=== PATIENT | female | born 1950 | race Caucasian/White ===

== ENCOUNTER 2017-08-03 20:35 | Emergency (ER) | payer OTHER ==
[~2017-08-03] VITALS: Ht 157.5 cm; Wt 83.0 kg
[2017-08-03 21:15] LABS: Basophils # (auto) 0.1 uL; Basophils % (auto) 0.9 % (0.0-2.0); Eosinophils # (auto) 0.1 uL; Eosinophils % (auto) 1.1 % (0.0-7.0); Hematocrit 44.4 % (36.0-46.0); Hemoglobin 15.3 g/dL (12.2-16.2); Lymphocytes % (auto) 27.7 % (10.0-50.0); Mean Corpuscular Hemoglobin 31.1 pg (28.0-32.0); Mean Corpuscular Hgb Conc. 34.5 g/dL (32.0-36.0); Mean Corpuscular Volume 90.2 fL (80.0-100.0); Monocytes # (auto) 0.5 uL; Monocytes % (auto) 7.2 % (0.0-12.0); Neutrophils # (auto) 4.5 uL; Neutrophils % (auto) 63.1 % (37.0-80.0); Nucleated Red Blood Cells % 0.1 %; Platelet Count (auto) 221 10^3/uL (140-450); Red Blood Cells 4.92 10^6/uL (4.0-5.20); Red Cell Distribution Width 13.4 % (11.8-14.3); White Blood Cell 7.2 10^3/uL (4.4-10.8)
[2017-08-03 21:32] LABS: Alanine Aminotransferase 54 U/L (13-56); Albumin 4.1 g/dL (3.4-5.0); Alkaline Phosphatase 115 U/L (45-117); Anion Gap 11 (5-15); Aspartate Aminotransferase 24 U/L (15-37); BUN/Creatinine Ratio 20.9; Bilirubin, Total 0.4 mg/dL (0.2-1.0); Blood Urea Nitrogen 18 mg/dL (7-18); Calcium 8.9 mg/dL (8.5-10.1); Carbon Dioxide 23 mmol/L (21-32); Chloride 101 mmol/L (98-107); GFR African American 84 mL/min; GFR Non-African American 70 mL/min; Glucose 274 mg/dL (74-106); Magnesium 2.3 mg/dL (1.6-2.6); Potassium 3.7 mmol/L (3.5-5.1); Sodium 135 mmol/L (136-145); Total Protein 7.7 g/dL (6.4-8.2)
[2017-08-03] MEDS ORDERED: NITROGLYCERIN 0.4 MG SL TAB SL ONE (22:00)
[2017-08-03] MEDS ORDERED: LORazepam 0.5 MG TAB PO ONE (22:30)
[2017-08-03] MEDS ORDERED: MORPHINE SULFATE 10 MG/ML INJ 1ML SDV IV ONE (22:30)
[2017-08-03] MEDS ORDERED: ONDANSETRON HCL 4 MG/2 ML VIAL IV ONE (22:30)
[2017-08-04 00:06] VITALS: BP 138/84
[2017-08-04] MEDS ORDERED: MORPHINE SULFATE INJECTION 1 ML ONE (00:39)
[2017-08-04] MEDS ORDERED: MORPHINE SULFATE 10 MG/ML INJ 1ML SDV IV ONE (00:45)
[2017-08-04] MEDS ORDERED: NITROGLYCERIN 0.4 MG SL TAB SL ONE (00:45)
== END 2017-08-04 00:37 | disposition short-term general hospital (02) ==
LOC: EDBD 20:35 → ER 20:41
DX: I24.9 Acute ischemic heart disease, unspecified (principal); E11.9 Type 2 diabetes mellitus without complications; Z88.6 Allergy status to analgesic agent; Z88.0 Allergy status to penicillin
CPT/HCPCS: 36415; 71010; 80053; 82962; 83735; 84484; 85025; 85379; 94761; 96372; 96374; 96375; 96376; 99285; J2270; J2405

== ENCOUNTER 2019-08-25 02:14 | Inpatient (IN) | payer MEDICAID, OTHER ==
[~2019-08-25] VITALS: Ht 157.5 cm; Wt 86.3 kg
[2019-08-25] VITALS (31 sets, daily range): BP systolic 78–132; BP diastolic 33–71
[~2019-08-25 02:14] MED LIST: ACE3T PO; ATOR10TA52 PO; INSLANTI SC; INSREG3 SC; OXYB15TA12 PO; QUET25TA37 PO; ROPI0.5T16 PO
[2019-08-25] MEDS ORDERED: SUCCINYLCHOLINE CHLORIDE 20 MG/ML 10ML VIAL IV ONE ×2 (02:27→03:00)
[2019-08-25] MEDS ORDERED: ETOMIDATE (2MG/ML) 20ML VIAL IV ONE ×2 (02:27→03:00)
[2019-08-25] MEDS ORDERED: MIDAZOLAM DRIP 50 mg/50mL 50 ML IV ONE ×2 (02:34→10:19)
[2019-08-25] MEDS: MIDAZOLAM DRIP 50 mg/50mL 50 ML IV SCH ×2 (02:39→23:40)
[2019-08-25] MEDS: NOREPINEPHRINE 8 MG/250ML KIT 250 ML IV SCH (02:40)
[2019-08-25] MEDS ORDERED: NOREPINEPHRINE 8 MG/250ML KIT 250 ML IV ONE (02:41)
[2019-08-25] MEDS ORDERED: fentaNYL Drip 2500mCg/250mlNS 250 ML IV ONE (02:48)
[2019-08-25] MEDS ORDERED: fentaNYL Drip 2500mCg/250mlNS 250 ML IV SCH ×2 (02:59→09:05)
[2019-08-25] MEDS ORDERED: VANCOMYCIN PER PHARMACY 0 MG IV SCH ×2 (03:00→05:45)
[2019-08-25] MEDS ORDERED: NITROGLYCERIN 0.4 MG SL TAB SL PRN ×2 (03:00→06:15)
[2019-08-25] MEDS ORDERED: cefTRIAXone 1GM/50ML D5W 50 ML IV ONE (03:00)
[2019-08-25 03:03] LABS: Basophils # (auto) 0.1 uL; Basophils % (auto) 0.5 % (0.0-2.0); Eosinophils # (auto) 0.1 uL; Eosinophils % (auto) 0.4 % (0.0-7.0); Hemoglobin 14.3 g/dL (12.2-16.2); Lymphocytes # (auto) 1.9 uL; Lymphocytes % (auto) 12.6 % (10.0-50.0); Mean Corpuscular Hemoglobin 31.6 pg (28.0-32.0); Mean Corpuscular Volume 92.9 fL (80.0-100.0); Monocytes % (auto) 6.9 % (0.0-12.0); Neutrophils # (auto) 11.8 uL; Neutrophils % (auto) 79.6 % (37.0-80.0); Platelet Count (auto) 211 10^3/uL (140-450); Red Blood Cells 4.52 10^6/uL (4.0-5.20); Red Cell Distribution Width 12.9 % (11.8-14.3); White Blood Cell 14.8 10^3/uL (4.4-10.8)
[2019-08-25] MEDS ORDERED: SODIUM CHLORIDE 0.9% 1,000 ML IV ONE (03:15)
[2019-08-25 03:21] LABS: Alanine Aminotransferase 27 U/L (13-56); Albumin 3.4 g/dL (3.4-5.0); Anion Gap 13 (5-15); Aspartate Aminotransferase 31 U/L (15-37); BUN/Creatinine Ratio 19.5; Blood Urea Nitrogen 25 mg/dL (7-18); Calcium 8.5 mg/dL (8.5-10.1); Carbon Dioxide 20 mmol/L (21-32); Chloride 101 mmol/L (98-107); GFR African American 53 mL/min; GFR Non-African American 44 mL/min; Glucose 226 mg/dL (74-106); Potassium 4.2 mmol/L (3.5-5.1); Sodium 134 mmol/L (136-145)
[2019-08-25 03:24] LABS: INR 1.13 (0.9-1.15); Partial Thromboplastin Time 23.9 sec (23.64-32.05)
[2019-08-25 03:26] LABS: Alkaline Phosphatase 123 U/L (45-117); Bilirubin, Total 0.2 mg/dL (0.2-1.0); Total Protein 6.8 g/dL (6.4-8.2)
[2019-08-25] MEDS ORDERED: VANCOMYCIN 1GM/250ML 250 ML IV SCH (03:35)
[2019-08-25 04:20] LABS: Urine Bacteria FEW /hpf (None Seen); Urine Blood Negative /uL (Negative); Urine Hyaline Cast MANY /lpf (0 - 2); Urine Mucus FEW (None Seen); Urine WBC 2 /hpf (0 - 5)
[2019-08-25 04:23] LABS: Lactic Acid w/Reflex 3.6 mmol/L (0.4-2.0)
[2019-08-25] MEDS ORDERED: DEXTROSE (50%) 50ML SYRG IV PRN (05:45)
[2019-08-25] MEDS ORDERED: ONDANSETRON HCL 4 MG/2 ML VIAL IV PRN (05:45)
[2019-08-25] MEDS ORDERED: SODIUM CHLORIDE 0.9% 1,000 ML IV SCH (05:45)
[2019-08-25] MEDS: ACCU-CHEK COMFORT CURVE STRIP VI SCH ×4 (05:59→23:48)
[2019-08-25] MEDS: IPRATROPIUM BROM 0.5 MG/2.5ML INH SOL NEB SCH ×3 (06:00→19:19)
[2019-08-25] MEDS: ALBUTEROL SULF 2.5 MG/0.5ML(0.5%) NEB SOLN NEB SCH ×3 (06:00→19:19)
[2019-08-25] MEDS: InsuLIN REG 1unit/0.01ml Soln (100units/ml) SC SCH ×4 (06:02→23:49)
[2019-08-25] MEDS ORDERED: MORPHINE SULF INJ 2 MG/ML SYRINGE 1ML IV PRN (06:15)
[2019-08-25] MEDS ORDERED: PHENYLEPHRINE INJ 20 MG in D5W 5% 250 ML IV SCH (09:15)
--- NOTE | 2019-08-25 09:30 | NUR ---
WOUND CARE NOTE: ADDED PATIENT TO SKIN INTEGRITY MONITORING D/T LOW LAY SCORE 10, INTUBATION STATUS. PATIENT ADMITTED TO [facility] WITH DIAGNOSIS OF SEPTIC SHOCK. SHE IS ICU STATUS, INTUBATED IN THE ER, BED 15. PATIENT RESTING ON GURNEY. HOSPITAL BED HAS BEEN ORDERED TO BE BROUGHT TO THE ER. PATIENT TO BE PLACED, PENDING DELIVERY BY BREAKFAST COOK. PATIENT HAS NO SKIN INTEGRITY ISSUES AT THIS TIME. SHE WOULD BENEFIT FROM: SKIN/WOUND CARE PLAN, BID/PRN APPLICATION WITH MOISTURE BARRIER CREAM, OPTIFOAM GENTLE SACRAL DRESSING, FREQUENT TURN SCHEDULE Q 2 HOURS, PRN CONDITION PERMITS, WITH PRESSURE REDISTRIBUTION USING PILLOWS/WEDGES, DIETARY CONSULT, CONTINUED MONITORING BY WOUND CARE TEAM.
[2019-08-25] MEDS: PANTOPRAZOLE 40 MG/10 ML VIAL INJ IV SCH (10:00)
[2019-08-25] MEDS ORDERED: LEVOFLOXACIN 250MG 50 ML IV SCH (10:00)
[2019-08-25] MEDS: SODIUM CHLORIDE 0.9% 1,000 ML IV SCH ×2 (15:35→22:08)
--- NOTE | 2019-08-25 18:15 | NUR ---
PT TEACHING PT UNABLE TO BENEFIT FROM PT TEACHING AT THIS TIME DUE TO CONDITION. Addendum: 08/25/19 at 2008 by Kisha Dsouza RN Amended: Links added.
--- NOTE | 2019-08-25 18:15 | NUR ---
Pt being admitted to ICU ONEL SWENSON admitted to ICU via gurney on surface supervisor, intubated and being manually ventilated. Patient transfered to bed, connected to ICU monitoring and ventilator, and weighed by bedscale, 86.8 kg/191.4 lbs.. Patient oriented to Kisha Dsouza, primary RN, unit, room, bed, and unit policies regarding patient care and visiting hours. All questions and concerns addressed, patient verbalized understanding. NOTE:PT SEDATED ON VERSED AT 15 MG/HR . SOME SPOMTA PT ON THE VENTILATOR WITH SETTINGS: 7.5 FR ETT/22 AT THE LIP, TV 500, AC 14, 40% FIO2 AND PEEP OF 5.LUNGS CLEAR AND DIMINISHED THROUGHOUT. O2 SAT OF 93% WITH RR 27. TELE ST 136. TEMP OF 101.1(O). ICE PACKS IN PLACE. ABD SOFT WITH + BOWEL SOUNDS. NGT TO LEFT NARES AND CLAMPED. WAITING FOR IRRIGATION TRAY TO BE DELIVERED SO I CAN VERIFY NGT PLACEMENT . HYPOACTIVE BOWEL SOUNDS NOTED. NOBLES CATHETER DRAINING CLEAR YELLOW URINE. TURNED FOR COMFORT RO HER LEFT SIDE. SOME MUCUS NOTED FROM RECTUM. PERICARE GIVEN. PT NOTED MONTY BLANCHABLE PINK AROUND RECTUM AND EXCORIATED IN FOLDS BETWEEN LABIA AND THIGHS BILATERALLY. CLEANED. APPLIED SCDS TO BLE. FEET VERY DRY, FLAKY AND CRACKED. THE SOLES OF HER FEET EXTREMELY DIRTY AND CALLOUSED. CLEANED FEET, AND APPLIED LOTION AND BOOTIES. FEET OFFLOADED ON PILLOWS. RAILS UPX4 AND BED IN LOW POSTITION FOR PT SAFETY.
--- NOTE | 2019-08-25 19:50 | NUR ---
REPORT REPORT GIVEN TO NIGHT NERI HAGER. Addendum: 08/25/19 at 2009 by Kisha Dsouza RN UNABLE TO COMPLETE ADMISSION INTERVENTIONS PT INTUBATED AND SEDATED AND NO FAMILY PRESENT.
--- NOTE | 2019-08-25 20:50 | NUR ---
FAMILY NEXT OF KIN INFORMATION ON PREVIOUS ADMISSION WAS WARD (SON) [phone]. PHONED THIS NUMBER. NOBODY ANSWERED. LEFT MESSAGE TO CALL BACK TO THE UNIT.
[2019-08-26] VITALS (103 sets, daily range): BP systolic 74–144; BP diastolic 38–98
[2019-08-26] MEDS: ALBUTEROL SULF 2.5 MG/0.5ML(0.5%) NEB SOLN NEB SCH ×4 (00:56→18:49)
[2019-08-26] MEDS: IPRATROPIUM BROM 0.5 MG/2.5ML INH SOL NEB SCH ×4 (00:56→18:49)
[2019-08-26] MEDS: NOREPINEPHRINE 8 MG/250ML KIT 250 ML IV SCH (01:22)
[2019-08-26] MEDS: VANCOMYCIN 750mg/250ml 250 ML IV SCH (03:54)
[2019-08-26] MEDS: MIDAZOLAM DRIP 50 mg/50mL 50 ML IV SCH ×5 (03:55→21:07)
[2019-08-26 05:55] LABS: Basophils # (auto) 0.2 uL; Basophils % (auto) 1.4 % (0.0-2.0); Eosinophils # (auto) 0.1 uL; Eosinophils % (auto) 0.7 % (0.0-7.0); Hematocrit 36.8 % (36.0-46.0); Hemoglobin 12.9 g/dL (12.2-16.2); Lymphocytes # (auto) 0.8 uL; Lymphocytes % (auto) 7.2 % (10.0-50.0); Mean Corpuscular Hemoglobin 31.9 pg (28.0-32.0); Mean Corpuscular Hgb Conc. 35.1 g/dL (32.0-36.0); Mean Corpuscular Volume 90.7 fL (80.0-100.0); Monocytes # (auto) 0.8 uL; Monocytes % (auto) 6.6 % (0.0-12.0); Neutrophils # (auto) 9.7 uL; Neutrophils % (auto) 84.1 % (37.0-80.0); Platelet Count (auto) 176 10^3/uL (140-450); Red Blood Cells 4.06 10^6/uL (4.0-5.20); Red Cell Distribution Width 13.1 % (11.8-14.3); White Blood Cell 11.5 10^3/uL (4.4-10.8)
[2019-08-26 06:11] LABS: Albumin 2.8 g/dL (3.4-5.0); Calcium 8.7 mg/dL (8.5-10.1); Potassium 4.1 mmol/L (3.5-5.1)
[2019-08-26 06:15] LABS: BUN/Creatinine Ratio 12.6; Bilirubin, Total 0.6 mg/dL (0.2-1.0); Total Protein 6.3 g/dL (6.4-8.2)
[2019-08-26] MEDS: ACCU-CHEK COMFORT CURVE STRIP VI SCH ×4 (06:17→23:33)
[2019-08-26] MEDS: InsuLIN REG 1unit/0.01ml Soln (100units/ml) SC SCH ×4 (06:17→23:49)
[2019-08-26 06:33] LABS: Magnesium 1.9 mg/dL (1.6-2.6)
--- NOTE | 2019-08-26 06:55 | NUR ---
PATIENT IS RESTLESS PATIENT IS ON VERSED 15 MG/HR. PATIENT IS VERY RESTLESS, TRYING TO PULL OUT ETT. BOTH HANDS ARE WITH MITTENS. HR IS IN LOW 130'S AND RESP.RATE IS IN HIGH 20'S. NOTIFIED MD AND HE ORDERED TO START PROPOFOL DRIP LOW DOSE.
[2019-08-26] MEDS: PROPOFOL 100 ML IV SCH ×2 (07:02→23:35)
--- NOTE | 2019-08-26 07:30 | NUR ---
REPORT REPORT RECEIVED AND BEDSIDE CHECK DONE. PT INTUBATED AND SEDATED. CONTINUE TO MONITOR.
--- NOTE | 2019-08-26 08:10 | NUR ---
PT TEACHING PT UNABLE TO BENEFIT FROM PT TEACHING AT THIS TIME SHE IS SEDATED WHILE ON THE VENTILATOR. Addendum: 08/26/19 at 1540 by Kisha Dsouza RN Amended: Links added.
[2019-08-26] MEDS: SODIUM CHLORIDE 0.9% 1,000 ML IV SCH ×2 (08:29→21:09)
--- NOTE | 2019-08-26 09:00 | NUR ---
FAMILY SPOKE WITH PT'S DAUGHTER IN LAW, JENNIFER, BY PHONE. UPDATED HER ON THE PT'S CURRENT CONDITION. I WILL ASK THE [facility] TO CALL AND UPDATE HER WHEN THEY MAKE ROUNDS, IF JENNIFER IS NOT HERE AT THAT TIME.
--- NOTE | 2019-08-26 09:25 | NUR ---
SPOKE WITH DR AQUINO BY PHONE AND NOTIFIED OF MORNING ABG. ORDERS RECEIVED TO KEEP O2 SATS GREATER THAN 90% , INCREASE PEEP TO 7, INCREASE FIO2 TO 45% AND AN ABG TO BE DONE IN [address] DHIRAJ
--- NOTE | 2019-08-26 09:28 | NUR ---
STARTED PT ON LEVOPHED AT 5 MCG. BP 79/41. CONTINUE TO MONITOR BP.
--- NOTE | 2019-08-26 09:55 | NUR ---
[facility] [employer] RECEIVED A CALL FROM [facility] [employer]/OUTSIDE UTILIZATION REVIEW. I UPDATED HER ON THE PT'S CURRENT CONDITION. HER CONTACT NUMBER IS [phone].
[2019-08-26] MEDS ORDERED: LEVOFLOXACIN 250MG 50 ML IV SCH (10:00)
[2019-08-26] MEDS: PANTOPRAZOLE 40 MG/10 ML VIAL INJ IV SCH (10:32)
[2019-08-26] MEDS ORDERED: MAGNESIUM SULFATE 1GM/100ML 100 ML IV ONE (11:00)
[2019-08-26] MEDS: LEVOFLOXACIN 750MG 150 ML IV SCH (11:00)
[2019-08-26] MEDS ORDERED: ACETAMINOPHEN 650 mg PER 20 mL UD GT PRN (13:15)
--- NOTE | 2019-08-26 13:20 | NUR ---
CARDIOLOGY CONSULT PT SEEN AND EXAMINED BY DR FITCH. HE DOES NOT FEEL PT IS STABLE FOR TRANSFER.
--- NOTE | 2019-08-26 15:16 | NUR ---
LOCATED PT'S PERSONAL BELONGINGS IN THE ER. I BROUGHT THEM TO ICU AND LOGGED THEM ON THE PT VALUABLES INVENTORY.
--- NOTE | 2019-08-26 17:33 | NUR ---
FAMILY DAUGHTER IN LAW RODRIGUEZ HERE AND UPDATED ON THE PT'S CONDITION AND POC. SHE PROVIDED WITH ADMITTING INFO AND A COPY OF THE PT'S DURABLE POWER OF HISTOLOGY TECHNICIAN. Addendum: 08/26/19 at 1735 by Kisha Dsouza RN JENNIFER DECIDED TO LEAVE THE PT'S BELONGINGS HERE IN CASE SHE TRANSFERS TO [place].
[2019-08-26] MEDS ORDERED: MULTTAB99 PO (19:43)
[2019-08-26] MEDS ORDERED: TROS20TA3 PO (19:43)
--- NOTE | 2019-08-26 19:45 | NUR ---
OPEN NOTES Received patient sedated and intubated. Moves upper limbs when stimulated.Pupils sluggishly reactive to light. On Sinus tachycardia HR 110-120/min. On IV Levophed at 4mcg/min. Patient breaths 20-30/min - increased sedation. Mittens at both hands. Full assessment done -refer interventions. Repositioned,oral care done.
--- NOTE | 2019-08-26 20:00 | NUR ---
RESPIRATORY PATIENT BREATHING 25-30/MIN, NOTED LABORED BREATHS, SPO2 96% - SUCTIONED SMALL AMOUNT OF SECRETIONS FROM ETT INCREASED SEDATION
[2019-08-27] VITALS (107 sets, daily range): BP systolic 96–146; BP diastolic 52–84
[2019-08-27] MEDS: ALBUTEROL SULF 2.5 MG/0.5ML(0.5%) NEB SOLN NEB SCH ×4 (00:17→18:25)
[2019-08-27] MEDS: IPRATROPIUM BROM 0.5 MG/2.5ML INH SOL NEB SCH ×4 (00:17→18:25)
[2019-08-27] MEDS: MIDAZOLAM DRIP 50 mg/50mL 50 ML IV SCH ×5 (01:00→23:05)
[2019-08-27] MEDS: NOREPINEPHRINE 8 MG/250ML KIT 250 ML IV SCH (03:02)
--- NOTE | 2019-08-27 04:30 | NUR ---
Patient bathe/linen change Patient given complete bath. Skin integrity assessed for any changes. Linens changed. Patient repositioned for comfort.
[2019-08-27 05:00] LABS: Basophils # (auto) 0 uL; Basophils % (auto) 0.4 % (0.0-2.0); Eosinophils # (auto) 0.1 uL; Eosinophils % (auto) 1.6 % (0.0-7.0); Hematocrit 32.3 % (36.0-46.0); Hemoglobin 11.6 g/dL (12.2-16.2); Lymphocytes # (auto) 0.9 uL; Lymphocytes % (auto) 11.1 % (10.0-50.0); Mean Corpuscular Hemoglobin 32.3 pg (28.0-32.0); Mean Corpuscular Hgb Conc. 35.8 g/dL (32.0-36.0); Mean Corpuscular Volume 90.2 fL (80.0-100.0); Monocytes # (auto) 0.6 uL; Monocytes % (auto) 7.2 % (0.0-12.0); Neutrophils # (auto) 6.6 uL; Neutrophils % (auto) 79.7 % (37.0-80.0); Nucleated Red Blood Cells % 0.1 %; Platelet Count (auto) 167 10^3/uL (140-450); Red Blood Cells 3.58 10^6/uL (4.0-5.20); Red Cell Distribution Width 13.1 % (11.8-14.3); White Blood Cell 8.3 10^3/uL (4.4-10.8)
[2019-08-27] MEDS: VANCOMYCIN 750mg/250ml 250 ML IV SCH (05:15)
[2019-08-27 05:23] LABS: Calcium 8.3 mg/dL (8.5-10.1); Potassium 3.8 mmol/L (3.5-5.1)
[2019-08-27 05:26] LABS: BUN/Creatinine Ratio 12.2
--- NOTE | 2019-08-27 06:00 | NUR ---
NGT PLACEMENT FROM XRAY ACCORDING TO CHEST XRAY ENTERIC TUBE NEEDS TO BE ADVANCE BY 10CM NGT PLACEMENT CHECKED BY AUSCULTATION - IT IS IN THE PROPER SPOT BUT STILL DID ADVANCE BY 5CM
[2019-08-27] MEDS: ACCU-CHEK COMFORT CURVE STRIP VI SCH ×4 (06:20→23:52)
[2019-08-27] MEDS: InsuLIN REG 1unit/0.01ml Soln (100units/ml) SC SCH ×4 (06:20→23:52)
--- NOTE | 2019-08-27 07:00 | NUR ---
REPORT REPORT GIVEN TO ALLEY HAYDEN
[2019-08-27] MEDS: SODIUM CHLORIDE 0.9% 1,000 ML IV SCH ×2 (09:00→19:51)
--- NOTE | 2019-08-27 09:00 | NUR ---
Family updated on pt status Family of ONEL SWENSON updated on patient's status and condition. All questions and concerns addressed, verbalized understanding; family created a password for information release.
[2019-08-27] MEDS: LEVOFLOXACIN 750MG 150 ML IV SCH (10:00)
[2019-08-27] MEDS: PANTOPRAZOLE 40 MG/10 ML VIAL INJ IV SCH (10:00)
--- NOTE | 2019-08-27 11:30 | NUR ---
Provider/Hospitalist at bedside Dr. Salamanca made rounds and saw pt. and made some orders
--- NOTE | 2019-08-27 12:30 | NUR ---
Provider/Hospitalist at bedside Dr. Gonzalez made rounds and saw pt. and evaluated pt. unstable for transfer to [place] at this time.
--- NOTE | 2019-08-27 13:00 | NUR ---
Provider/Hospitalist at bedside Dr. Loya made rounds and saw pt. and made some orders, MD was updated on pt.'s status/condition.
--- NOTE | 2019-08-27 16:00 | NUR ---
RE-ASSESS VSS, afebrile, no pain/distress seen, will continue to monitor pt.
--- NOTE | 2019-08-27 19:25 | NUR ---
OPENING SHIFT RECEIVED REPORT FROM DAY SHIFT RN. ASSUMED CARE OF PATIENT. PATIENT IN BED SEDATED AND INTUBATED - SIZE 7.5, 24 AT THE LIP. CURRENTLY ON VENT - AC 14/ TV 500/ FI02 35%/ PEEP +7, 02 SAT - 97%. RIGHT INTRAJUGULAR TLC, LEFT AND RIGHT FOREARM IV - CLEAN/DRY/INTACT. NASOGASTRIC TUBE IN THE LEFT NARE - CLAMPED, NO RESIDUAL. NOBLES HUNG TO GRAVITY ON BED RAIL. REPOSITIONED FOR COMFORT. BED IN LOWEST POSITION, SIDE RAILS UP X2. WILL CONTINUE TO MONITOR.
[2019-08-28] VITALS (88 sets, daily range): BP systolic 89–152; BP diastolic 56–83
[2019-08-28] MEDS: IPRATROPIUM BROM 0.5 MG/2.5ML INH SOL NEB SCH ×4 (00:04→19:17)
[2019-08-28] MEDS: ALBUTEROL SULF 2.5 MG/0.5ML(0.5%) NEB SOLN NEB SCH ×4 (00:04→19:17)
--- NOTE | 2019-08-28 03:00 | NUR ---
MORNING CARE PERFORMED MORNING CARE WITH CHG WIPES. PARTIAL LINEN CHANGE AND GOWN CHANGED. SKIN REASSESSED AT THIS TIME. REPOSITIONED FOR COMFORT. BED IN LOWEST POSITION, SIDE RAILS UP X2. WILL CONTINUE TO MONITOR.
[2019-08-28] MEDS: MIDAZOLAM DRIP 50 mg/50mL 50 ML IV SCH ×2 (03:20→06:39)
[2019-08-28] MEDS: VANCOMYCIN 750mg/250ml 250 ML IV SCH (03:38)
[2019-08-28 04:03] LABS: Basophils # (auto) 0 uL; Basophils % (auto) 0.8 % (0.0-2.0); Eosinophils # (auto) 0.2 uL; Eosinophils % (auto) 2.5 % (0.0-7.0); Hematocrit 31.6 % (36.0-46.0); Hemoglobin 11.5 g/dL (12.2-16.2); Lymphocytes # (auto) 0.9 uL; Lymphocytes % (auto) 13.3 % (10.0-50.0); Mean Corpuscular Hemoglobin 32.5 pg (28.0-32.0); Mean Corpuscular Hgb Conc. 36.3 g/dL (32.0-36.0); Mean Corpuscular Volume 89.6 fL (80.0-100.0); Monocytes # (auto) 0.5 uL; Monocytes % (auto) 7.4 % (0.0-12.0); Platelet Count (auto) 171 10^3/uL (140-450); Red Blood Cells 3.53 10^6/uL (4.0-5.20); Red Cell Distribution Width 12.7 % (11.8-14.3); White Blood Cell 6.6 10^3/uL (4.4-10.8)
[2019-08-28 04:22] LABS: Potassium 3.7 mmol/L (3.5-5.1)
[2019-08-28 04:26] LABS: Calcium 8.5 mg/dL (8.5-10.1)
[2019-08-28] MEDS: InsuLIN REG 1unit/0.01ml Soln (100units/ml) SC SCH ×3 (06:29→18:43)
[2019-08-28] MEDS: ACCU-CHEK COMFORT CURVE STRIP VI SCH ×3 (06:29→18:43)
[2019-08-28] MEDS: SODIUM CHLORIDE 0.9% 1,000 ML IV SCH (06:40)
[2019-08-28] MEDS: PROPOFOL 100 ML IV SCH ×3 (06:53→18:41)
--- NOTE | 2019-08-28 07:12 | NUR ---
END OF SHIFT REPORT GIVEN TO DAY SHIFT RN. CARE ENDORSED.
--- NOTE | 2019-08-28 09:10 | NUR ---
FAMILY PHONE CALL Received phone call from patient's daughter in law Liv, updated her on patient condition and possibility of transfer to [facility] today. Informed her that we will not know which [facility] facility she would go to until [facility] case management notifies us of the bed arrangement. She states that she has not been able to speak to a doctor so far, will attempt to have physician call after rounds today. Liv states that she will call later in the day for an update if she does not hear from anyone before then.
[2019-08-28] MEDS: LEVOFLOXACIN 750MG 150 ML IV SCH (10:31)
[2019-08-28] MEDS: PANTOPRAZOLE 40 MG/10 ML VIAL INJ IV SCH (10:32)
--- NOTE | 2019-08-28 10:45 | NUR ---
AT BEDSIDE; Dr. Salamanca at bedside, updated on patient condition. States to clear patient for transfer with pulmonology as well as cardiology.
[2019-08-28] MEDS ORDERED: SODIUM CHLORIDE 0.9% 1,000 ML IV SCH (11:00)
--- NOTE | 2019-08-28 12:00 | NUR ---
08/28/19 1150 Contacted willow analyst Milagros at [facility] to request authorization for patient's continued stay. Per Milagros the assigned director of casework is Radha and she will have her give me a call. Per [place] director of casework Radha is still reviewing clinical information and further authorization can not be given until information is reviewed. I faxed labs, vitals, CXR, medication list to [facility] [phone].
--- NOTE | 2019-08-28 12:00 | NUR ---
AT BEDSIDE; Dr. Keating at bedside, case reviewed. Discussed orders for transfer to [place], states that patient is stable for transfer from pulmonary point of view.
--- NOTE | 2019-08-28 12:07 | NUR ---
08/28/19 0786 I received a call from [place] [employer] Specialist Radha. Provided her with a verbal report on the patient's clinical status as requested. I let her know that there is an order to transfer this patient to [place]. I requested authorization for yesterday-she said it was denied due to limited clinical information received. I asked her what information she did not receive that was requested-she stated MD progress notes and pulmonology progress notes from 08/27. Faxed requested items to her [phone]. I asked Radha if auth would be given for yesterday once the additional clinical information is received, she said she will have to present the information to her MD and she will give me a call back regarding the authorization request. I also faxed her the transfer order, today's MD progress notes and Notice Regarding Post Stabilization.
--- NOTE | 2019-08-28 12:11 | NUR ---
MD BUSH: Dr. Carlos bush for stability clearance for transfer to [place].
--- NOTE | 2019-08-28 12:55 | NUR ---
RETURNED PAGE; Updated Dr. Gonzalez on patient condition, informed him that the patient's heart rate has been better under control continues to be ST, however, rate is 110's. States that patient is stable for transfer from his point of view.
--- NOTE | 2019-08-28 18:15 | NUR ---
FAMILY UPDATED: Patient's daughter in law Liv updated on plan to transfer patient to [facility] this evening. Informed her that patient is to go to room 226, with an estimated departure time of [id number]. Consent for transfer obtained from Liv at this time.
--- NOTE | 2019-08-28 20:55 | NUR ---
Pt being trans to another hosp Order obtained for transfer of ONEL SWENSON to [facility]. Report called/given to Jessica HAGER. Report given to EMS transport team. Medication reconciliation form completed and copy given to patient. Transported via gurney, on ventilator and sedation with propofol @ 10 mcg/kg/min, with OGT and lawrence catheter along with copied chart and imaging films/disk and all personal belongings. No distress noted on time of departure. Family notified of destination and room number, verbalized understanding. NOTE: Addendum: 08/28/19 at 2115 by Nikita Coyle RN MRSA swab done prior to discharge
== END 2019-08-28 20:55 | disposition expired | DRG 871 ==
LOC: EDBD 02:14 → ER 02:15 → OVERFLOW 02:16 → ICU WEST 18:08
PROVIDERS: ADMIT Nurse Practitioner; ATTEND Internal Medicine
PROC: 5A1945Z Respiratory Ventilation, 24-96 Consecutive Hours (ICD-10-PCS; principal; 2019-08-25)
PROC: 02HV33Z Insertion of Infusion Device into Superior Vena Cava, Percutaneous Approach (ICD-10-PCS; 2019-08-25)
PROC: 0BH17EZ Insertion of Endotracheal Airway into Trachea, Via Natural or Artificial Opening (ICD-10-PCS; 2019-08-25)
PROC: B548ZZA Ultrasonography of Superior Vena Cava, Guidance (ICD-10-PCS; 2019-08-25)
DX: A41.9 Sepsis, unspecified organism (principal); J69.0 Pneumonitis due to inhalation of food and vomit; R65.21 Severe sepsis with septic shock; N17.0 Acute kidney failure with tubular necrosis; J96.20 Acute and chronic respiratory failure, unspecified whether with hypoxia or hypercapnia; Z99.11 Dependence on respirator [ventilator] status; E87.3 Alkalosis; E78.5 Hyperlipidemia, unspecified; I10 Essential (primary) hypertension; J43.9 Emphysema, unspecified; F32.9 Major depressive disorder, single episode, unspecified; E11.40 Type 2 diabetes mellitus with diabetic neuropathy, unspecified; F41.9 Anxiety disorder, unspecified; Z90.710 Acquired absence of both cervix and uterus; Z79.899 Other long term (current) drug therapy; Z88.0 Allergy status to penicillin; Z88.7 Allergy status to serum and vaccine; Z88.8 Allergy status to other drugs, medicaments and biological substances
CPT/HCPCS: 31500; 36415; 36600; 70450; 71045; 74176; 80048; 80053; 80061; 81001; 82805; 82962; 83036; 83605; 83735; 83880; 84484; 85025; 85379; 85610; 85730; 87040; 87070; 87081; 87086; 87205; 93005; 94002; 94003; 94640; 99291; C9113; G0378; J0330; J0696; J1815; J1956; J2250; J2704; J7060